=== PATIENT | female | born 1980 | race Caucasian/White ===

== ENCOUNTER 2017-12-04 21:15 | Emergency (ER) | payer SELFPAY ==
--- NOTE | 2017-12-04 21:17 | DI.RAD.S_ITS ---
PROCEDURE: XR CHEST 1V INDICATIONS: Chest pain TECHNIQUE: One view of the chest was acquired. COMPARISON: None. FINDINGS: Surgical changes and devices: None. Lungs and pleura: No pleural effusions or pneumothorax. Lungs are clear. Mediastinum: Mediastinal contours appear normal. Heart size is normal. Bones and chest wall: No suspicious bony lesions. Overlying soft tissues appear unremarkable. IMPRESSION: No acute process. Dictated by: Julio Gudino M.D. on 12/04/2017 at 21:58 Approved by: Julio Gudino M.D. on 12/04/2017 at 21:58
[2017-12-04 21:20] VITALS: BP 132/83; PULSE 94; RESP 18; TEMP 36.7; O2SAT 99; BMI 27.3
--- NOTE | 2017-12-04 21:37 | ED.CHESTPAIN ---
HPI - Chest Pain General Chief Complaint: Chest Pain Stated Complaint: BURNING SENSATION RT SIDE OF CHEST/PRESSURE Time Seen by Provider: 12/04/17 21:16 Source: patient Mode of arrival: ambulatory Limitations: no limitations History of Present Illness HPI narrative: 37-year-old female here for evaluation of epigastric and right-sided chest pressure and burning. She states it has been going on for the past day. She states that she did have an episode violent episode of vomiting after the patient states she also has a history of bulimia. She states that she purchase approximately once a week. Has never had anything like this before. Never had history of reflux disease. States that it did get worse with drinking fluids and eating earlier today. No family history of early cardiac disease Related Data Home Medications Medication Instructions Recorded Confirmed bismuth subsalicylate 1 tab PO 12/04/17 [Pepto-Bismol] ranitidine HCl [Zantac] 12/04/17 Previous Rx's Medication Instructions Recorded amoxicillin 500 mg PO TID #30 tab 04/27/16 sucralfate [Carafate] 5 ml PO QID #420 ml 12/04/17 Allergies Allergy/AdvReac Type Severity Reaction Status Date / Time No Known Drug Allergies Allergy Verified 12/04/17 21:42 Review of Systems Constitutional Denies chills, Denies fever(s), Denies lethargy and Denies weakness Cardiovascular Reports chest pain, Denies chest pain with activity, Denies diaphoresis, Denies rapid heart rate, Denies edema, Denies lightheadedness, Denies palpitations, Denies dyspnea and Denies slow heart rate Respiratory Denies cough, Denies pain on inspiration, Denies pain with cough, Denies dyspnea and Denies wheezing Gastrointestinal Gastrointestinal: Reports nausea and Reports vomiting Comments: Epigastric abdominal pain Genitourinary Denies hematuria, Denies flank pain, Denies urinary incontinence and Denies urinary urgency Musculoskeletal Denies back pain, Denies muscle weakness, Denies numbness and Denies tingling Integumentary/Breasts Denies pruritus, Denies erythema, Denies rash and Denies wounds Neurologic Denies numbness, Denies tingling and Denies weakness Endocrine Denies palpitations Hematologic/Lymphatic Denies easy bruising Allergic/Immunologic Denies wheezing [facility] Medical History Parotid tumor (Acute) Surgical History H/O hernia repair (Acute) Social History Smoking Status: Current every day smoker Exam Initial Vital Signs Initial Vital Signs: Vital Signs Temperature 98.1 F 12/04/17 21:20 Pulse Rate 94 H 12/04/17 21:20 Respiratory Rate 18 12/04/17 21:20 Blood Pressure 132/83 H 12/04/17 21:20 Pulse Oximetry 99 12/04/17 21:20 Chest Chest: normal inspection of the chest Resp Effort & Inspection: normal respiratory effort, able to speak in complete sentences, no respiratory distress and no use of accessory muscles Auscultation: clear to auscultation bilaterally, no rales, no rhonchi and no wheezes Cardio Rate: regular rate Rhythm: regular rhythm Heart Sounds: no click, no gallops, no murmurs and no rubs Pulses: normal peripheral pulses GI Inspection: non-distended Palpation: soft, no hepatosplenomegaly, No guarding, No pulsatile mass and No tender Auscultation: normal bowel sounds Skin General: no rashes or lesions noted, No jaundice and No petechiae Neuro General: alert, oriented x3, gait normal and no focal motor deficits Speech: speech normal Extrem General: full ROM, no clubbing, cyanosis or edema, no pedal edema and no calf tenderness Course Orders Ordered: ED Orders 12/04/17 21:17 XR chest 1V Stat EKG-12 Lead Stat 12/04/17 21:25 Complete Blood Count AUTO DIFF Stat Comprehensive Metabolic Panel Stat Lipase Stat Discontinued Medications Al Hydrox/Mg Hydrox/Simethicone 20 ml/ Lidocaine HCl 15 ml 0 ml PO NOW ONE Stop: 12/04/17 21:57 Last Admin: 12/04/17 22:03 Dose: 35 ml Vital Signs - 8 hr 12/04/17 21:20 12/04/17 22:19 Temperature 98.1 F Pulse Rate 94 H 70 Respiratory Rate 18 15 Blood Pressure 132/83 H Blood Pressure [Right Arm] 115/77 Pulse Oximetry 99 97 MDM - Chest Pain Lab Data Attestation: I reviewed the patient's lab results. Result diagrams: 12/04/17 21:25 12/04/17 21:25 Lab Results 12/04/17 12/04/17 Range/Units 21:25 21:25 WBC 10.4 (4.5-11.0) X10^3/uL RBC 4.47 (4.0-5.2) X10^6/uL Hgb 13.9 (12.0-16.0) g/dL Hct 40.9 (36-46) % MCV 91.5 (80-100) fL MCH 31.1 (26-34) PG MCHC 34.0 (30-36) % RDW 14.1 (11.6-14.8) % Plt Count 267 (150-400) X10^3/uL Neut % (Auto) 71.9 (50-75) % Lymph % (Auto) 17.5 L (25-40) % Heard % (Auto) 8.7 (3-14) % Eos % (Auto) 1.4 L (2-4) % Baso % (Auto) 0.5 (0-2) % Neut # (Auto) 7400 H (0990-3785) /uL Sodium 141 (137-145) mmol/L Potassium 4.0 (3.4-5.1) mmol/L Chloride 100 (98-107) mmol/L Carbon Dioxide 28 (22-32) mmol/L BUN 12 (7-17) mg/dL Creatinine 0.60 (0.52-1.04) mg/dL Estimated GFR > 60.0 (>60) mL/min BUN/Creatinine Ratio 20.0 (6-22) Glucose 94 (70-100) mg/dL Calcium 9.7 (8.4-10.2) mg/dL Total Bilirubin 0.5 (0.2-1.3) mg/dL AST 21 (14-36) IU/L ALT 25 (9-52) IU/L Alkaline Phosphatase 52 (38-126) U/L Total Protein 8.1 (6.3-8.2) g/dL Albumin 4.5 (3.5-5.0) g/dL Globulin 3.6 (1.7-4.1) g/dL Albumin/Globulin Ratio 1.3 (1.0-2.8) Lipase 63 (23-300) U/L Imaging Data Chest x-ray: Attestation: I personally reviewed and interpreted this imaging study as follows: My impression: No acute disease Normal size heart No pneumonia ECG Data Attestation: I personally reviewed and interpreted this ECG as follows: Prior ECG tracings: not available for review Interpretation: Sinus rhythm Ventricular rate is 77 Incomplete right bundle branch block Normal axis Normal QRS No ST T wave changes MDM Narrative Medical decision making narrative: Chest x-ray negative, EKG unremarkable, symptoms like consistent with ACS. Did get some relief with a GI cocktail here in the ER. I feel like her symptoms today are GI related. We did discuss her bulimia issues and the fact that she should talk with her primary doctor regarding this. We did discuss return precautions. Will send home with a prescription for Carafate. She expressed understanding and agreement with plan Discharge Plan Departure Patient Disposition: Home, Self-Care Clinical Impression: Reflux gastritis Instructions: DI for Gastroesophageal Reflux Disease (GERD) Activity Restrictions/Additional Instructions: Take all of your medications as instructed. Follow up with their primary doctor like we discussed return to the emergency department for any new or worsening symptoms Prescriptions: New sucralfate [Carafate] 100 mg/mL suspension 5 ml PO QID Qty: 420 RF: 0 No Action amoxicillin 500 MG tablet 500 mg PO TID Qty: 30 RF: 0 bismuth subsalicylate [Pepto-Bismol] 262 mg Tablet 1 tab PO RF: 0 ranitidine HCl [Zantac] 150 mg Tablet RF: 0 Stand Alone Forms: Against Medical Advice
[2017-12-04 21:49] LABS: Add Manual Diff / Slide Review NO; Basophils Percent Auto 0.5 % (0-2); Eosinophils Percent Auto 1.4 % (2-4); Hematocrit 40.9 % (36-46); Hemoglobin 13.9 g/dL (12.0-16.0); Lymphocytes Percent Auto 17.5 % (25-40); Mean Corpuscular Hemoglobin 31.1 PG (26-34); Mean Corpuscular Volume 91.5 fL (80-100); Monocytes Percent Auto 8.7 % (3-14); Neutrophils Absolute Auto 7400 /uL (3000-5900); Neutrophils Percent Auto 71.9 % (50-75); Platelet Count 267 X10^3/uL (150-400); Red Blood Cell Count 4.47 X10^6/uL (4.0-5.2); Red Cell Distribution Width 14.1 % (11.6-14.8); White Blood Cell Count 10.4 X10^3/uL (4.5-11.0)
[2017-12-04 21:54] LABS: Alanine Aminotransferase 25 IU/L (9-52); Albumin 4.5 g/dL (3.5-5.0); Albumin Globulin Ratio 1.3 (1.0-2.8); Alkaline Phosphatase 52 U/L (38-126); Aspartate Aminotransferase 21 IU/L (14-36); Bilirubin Total 0.5 mg/dL (0.2-1.3); Blood Urea Nitrogen 12 mg/dL (7-17); Calcium 9.7 mg/dL (8.4-10.2); Carbon Dioxide 28 mmol/L (22-32); Chloride 100 mmol/L (98-107); Estimated Glomerular Filt Rate > 60.0 mL/min (>60); Globulin 3.6 g/dL (1.7-4.1); Glucose 94 mg/dL (70-100); HEMOLYSIS 17 (0-50); Lipase 63 U/L (23-300); Sodium 141 mmol/L (137-145); Total Protein 8.1 g/dL (6.3-8.2)
[2017-12-04] MEDS: MAG HYDROX/ALUMINUM/SIMETH SUS 20 ML, LIDOCAINE VISCOUS 2% 15 ML PO (22:03)
[2017-12-04 22:19] VITALS: BP 115/77; PULSE 70; RESP 15; O2SAT 97
== END 2017-12-04 23:02 | disposition home or self-care (01) ==
PROVIDERS: Emergency Provider Emergency Medicine; Family Provider Family Medicine; PCP Family Medicine
DX: K29.60 Other gastritis without bleeding (principal)
CPT/HCPCS: 36591; 71045; 80053; 83690; 85025; 93005; 99282; 99285

== ENCOUNTER 2018-09-17 23:25 | Emergency (ER) | payer OTHER, SELFPAY ==
[2018-09-17 23:39] VITALS: BP 123/88; PULSE 102; RESP 20; TEMP 36.6; O2SAT 100
--- NOTE | 2018-09-18 02:12 | ED.UPPEXIN ---
HPI - Extremity Injury (Upper) General Chief Complaint: Extremity Injury, Upper Stated Complaint: left elbow cut with bone exposure from fall at wor Time Seen by Provider: 09/18/18 01:51 Source: patient Mode of arrival: ambulatory Limitations: no limitations History of Present Illness HPI narrative: Patient is a 38-year-old female who presents with left elbow injury and right ring finger injury. She was at work today when she cut her right ring finger. He said that was easily controlled with a band-aid. Then at around 10:00 p.m. this evening she was is caring something hands were full she tripped and fell landing on her elbows. Her left elbow has laceration in her right finger opened up again. No other injuries. She denies numbness or tingling in her fingers she is able to flex and extend her left elbow Related Data Home Medications Medication Instructions Recorded Confirmed bismuth subsalicylate 1 tab PO 12/04/17 [Pepto-Bismol] ranitidine HCl [Zantac] 12/04/17 Previous Rx's Medication Instructions Recorded amoxicillin 500 mg PO TID #30 tab 04/27/16 sucralfate [Carafate] 5 ml PO QID #420 ml 12/04/17 Allergies Allergy/AdvReac Type Severity Reaction Status Date / Time No Known Drug Allergies Allergy Verified 12/04/17 21:42 Review of Systems Review of Systems GENERAL: Denies chills, fatigue, malaise, fever, sweats, travel HEENT: Denies sinus pain, ear pain, sore throat, difficulty swallowing, neck pain RESPIRATORY: Denies dyspnea, cough, wheezing, hemoptysis, sputum. CARDIOVASCULAR: Denies chest pain, palpitations, orthopnea, edema GASTROINTESTINAL: Denies nausea, vomiting, abdominal pain, diarrhea, constipation, melena. : Denies dysuria, frequency, incontinence, hematuria, urinary retention, flank pain. MUSCULOSKELETAL: See HPI SKIN: See HPI NEUROLOGIC: Denies weakness, dizziness, headache, numbness, change in speech, confusion PSYCHIATRIC: No concerning psychosocial issues. 12 point review of systems is negative except for those stated above and HPI PFS Social History Smoking Status: Current every day smoker Exam Initial Vital Signs Initial Vital Signs: Vital Signs Temperature 98 F 09/17/18 23:39 Pulse Rate 102 H 09/17/18 23:39 Respiratory Rate 20 09/17/18 23:39 Blood Pressure 123/88 09/17/18 23:39 Pulse Oximetry 100 09/17/18 23:39 GENERAL: Well-appearing, well-nourished and in no acute distress. HEENT: Head atraumatic,EOMI, pupils reactive, neck is supple CARDIOVASCULAR: Regular rate and rhythm without murmurs, rubs or gallops. RESPIRATORY: Breath sounds equal bilaterally, no wheezes rales or rhonchi. ABDOMEN: Soft, nontender. Normoactive bowel sounds all 4 quadrants. No guarding or rebound. EXTREMITIES: Normal range of motion, no clubbing or edema. Neurovascularly intact. Left upper extremity laceration noted at although full flexion extension supination and pronation without pain. No shoulder pain or deformity NEUROLOGICAL: Alert and oriented x4.Normal gait and speech. Cranial nerves II through XII grossly intact. SKIN: 2 cm laceration noted left elbow. A flap-like laceration is right ring finger is on the lateral side. Full flexion and extension Procedures Laceration Repair Laceration 1: Site: upper extremity Side (If applicable): left Size (cm): 2 Description: linear Depth: simple, single layer Local Anesthetic: lidocaine 2% and with epi Amount of anesthesia used (mL): 2 Pre-repair: wound explored and irrigated extensively Skin layer closed with: nylon Size (cm): 4-0 Number of sutures: 2 Course Orders Ordered: Discontinued Medications Diphtheria/Tetanus/Acell Pertussis (Adacel) 0.5 ml IM .ONCE ONE Stop: 09/18/18 02:30 Last Admin: 09/18/18 02:31 Dose: 0.5 ml Vital Signs - 8 hr 09/17/18 23:39 09/18/18 02:36 Temperature 98 F Pulse Rate 102 H 80 Respiratory Rate 20 18 Blood Pressure 123/88 103/57 L Pulse Oximetry 100 98 Discharge Plan Departure Patient Disposition: Home Clinical Impression: Laceration of elbow, left Qualifiers: Encounter type: initial encounter Qualified Code(s): S51.012A - Laceration without foreign body of left elbow, initial encounter Laceration of right ring finger Qualifiers: Encounter type: initial encounter Damage to nail status: without damage Foreign body presence: without foreign body Qualified Code(s): S61.214A - Laceration without foreign body of right ring finger without damage to nail, initial encounter Discharge Date/Time: 09/18/18 02:37 Interventions: ED Discharge Assessment Last Done: 09/18/18 02:36 Instructions: DI for Laceration Repair Activity Restrictions/Additional Instructions: 1. Have your suture removed in 5-7 days, you may go to walk-in clinic, return to the ER or call your primary care physician. 2. No soaking in water including dishes, bathtubs, Lakes, swimming pools etc 3. Signs of infection include, but not limited to, increased redness, increased swelling, increased pain, fever and purulent drainage, if the symptoms should arise, you may need an antibiotic and you should have a reevaluation either by your primary care provider or by the emergency department. Prescriptions: No Action amoxicillin 500 MG tablet 500 mg PO TID Qty: 30 RF: 0 bismuth subsalicylate [Pepto-Bismol] 262 mg Tablet 1 tab PO RF: 0 ranitidine HCl [Zantac] 150 mg Tablet RF: 0 sucralfate [Carafate] 100 mg/mL suspension 5 ml PO QID Qty: 420 RF: 0 Referrals: [facility] [Provider Group]
--- NOTE | 2018-09-18 02:26 | PC.NURSE ---
After sutures per doctor,bacitracin and dressing applied.no drainage noted.
[2018-09-18] MEDS: TET,DIPH,PERTUSS(ACELL),VAC/PF 0.5 ML SYRINGE IM (02:31)
[2018-09-18 02:36] VITALS: BP 103/57; PULSE 80; RESP 18; O2SAT 98
== END 2018-09-18 02:37 | disposition home or self-care (01) ==
PROVIDERS: Emergency Provider Emergency Medicine
DX: S51.012A Laceration without foreign body of left elbow, initial encounter (principal); S61.214A Laceration without foreign body of right ring finger without damage to nail, initial encounter; W19.XXXA Unspecified fall, initial encounter; Y99.0 Civilian activity done for income or pay
CPT/HCPCS: 12001; 90471; 99282; 99283; 90715

== ENCOUNTER 2018-09-27 13:44 | Emergency (ER) | payer OTHER, SELFPAY ==
[2018-09-27 13:51] VITALS: BP 116/74; PULSE 68; RESP 16; TEMP 36.6; O2SAT 99
--- NOTE | 2018-09-27 14:21 | ED.WOUNDLAC ---
HPI - Wound/Laceration <[facility] - Last Filed: 09/27/18 17:49> General Chief Complaint: Wound/Laceration Stated Complaint: stitches removal Time Seen by Provider: 09/27/18 14:10 Source: patient Mode of arrival: ambulatory Limitations: no limitations History of Present Illness HPI narrative: Patient is a 38-year-old female current everyday smoker who presents with a chief complaint of needing a stitch removal. She had a laceration down to her elbow on 09/17 and had 2 sutures here. She states it is healing well, she has had no problems with mobility and has no concerns about possible infection. Related Data Home Medications Medication Instructions Recorded Confirmed bismuth subsalicylate 1 tab PO 12/04/17 [Pepto-Bismol] ranitidine HCl [Zantac] 12/04/17 Previous Rx's Medication Instructions Recorded amoxicillin 500 mg PO TID #30 tab 04/27/16 sucralfate [Carafate] 5 ml PO QID #420 ml 12/04/17 Allergies Allergy/AdvReac Type Severity Reaction Status Date / Time No Known Drug Allergies Allergy Verified 09/27/18 13:55 Review of Systems [facility] Last Filed: 09/27/18 17:49> Review of Systems GENERAL: Denies chills, fatigue, malaise, fever, sweats. HEENT: Denies sinus pain, ear pain, sore throat, difficulty swallowing, dizziness. RESPIRATORY: Denies dyspnea, cough, wheezing, hemoptysis, sputum. CARDIOVASCULAR: Denies chest pain, palpitations, orthopnea, edema, GASTROINTESTINAL: Denies nausea, vomiting, abdominal pain, diarrhea, constipation, melena. : Denies dysuria, frequency, incontinence, hematuria, urinary retention. MUSCULOSKELETAL: denies weakness, joint pain, or bony pain SKIN: See HPI NEUROLOGIC: Denies weakness, headache, numbness, change in speech, confusion, seizures, incoordination. PSYCHIATRIC: No concerning psychosocial issues. 12 point review of systems is negative except for those stated above PFSH <[facility] - Last Filed: 09/27/18 17:49> Social History Smoking Status: Current every day smoker Exam <RENÉE Craig - Last Filed: 09/27/18 17:49> Narrative Exam Narrative: GENERAL: This is a well-nourished, well-developed patient, no acute distress HEAD: Atraumatic. Normocephalic. No temporal or scalp tenderness. EYES: Pupils equal round and reactive. Extraocular motions intact. No scleral icterus. No injection or drainage. ENT: Nose without bleeding, purulent drainage or septal hematoma. Throat without erythema, tonsillar hypertrophy or exudate. Uvula midline. Airway patent. NECK: Trachea midline. No JVD or lymphadenopathy. Supple, nontender, no meningeal signs. CARDIOVASCULAR: Regular rate and rhythm RESPIRATORY: No cough. No increased respiratory effort. EXTREMITIES: Full range of motion left elbow BACK: Nontender without deformity or crepitance. No flank tenderness. NEURO: AOx3. SKIN: 2 cm laceration to left elbow. Two sutures in place. No surrounding erythema drainage. Initial Vital Signs Initial Vital Signs: Vital Signs Temperature 97.9 F 09/27/18 13:51 Pulse Rate 68 09/27/18 13:51 Respiratory Rate 16 09/27/18 13:51 Blood Pressure 116/74 09/27/18 13:51 Pulse Oximetry 99 09/27/18 13:51 <Nimisha Estrada DO - Last Filed: 09/29/18 10:15> Initial Vital Signs Initial Vital Signs: Vital Signs Temperature 97.9 F 09/27/18 13:51 Pulse Rate 68 09/27/18 13:51 Respiratory Rate 16 09/27/18 13:51 Blood Pressure 116/74 09/27/18 13:51 Pulse Oximetry 99 09/27/18 13:51 Course <RENÉE Craig - Last Filed: 09/27/18 17:49> Vital Signs - 8 hr 09/27/18 13:51 Temperature 97.9 F Pulse Rate 68 Respiratory Rate 16 Blood Pressure 116/74 Pulse Oximetry 99 <Nimisha Estrada DO - Last Filed: 09/29/18 10:15> Vital Signs - 8 hr 09/27/18 13:51 Temperature 97.9 F Pulse Rate 68 Respiratory Rate 16 Blood Pressure 116/74 Pulse Oximetry 99 MDM - Wound/Laceration <RENÉE Craig - Last Filed: 09/27/18 17:49> [facility] Narrative Medical decision making narrative: The patient is a 38-year-old female who presents with a chief complaint of needing suture removal. Her laceration is healed well and has no signs or symptoms of infection. Sutures removed by nursing without incident. Discharge Plan Departure Patient Disposition: Home Clinical Impression: Encounter for removal of sutures Discharge Date/Time: 09/27/18 14:48 Interventions: ED Discharge Assessment Last Done: 09/27/18 14:47 Instructions: DI for Suture Removal Activity Restrictions/Additional Instructions: Monitor your incision for signs and symptoms of infection including redness, pus and fever. Please be evaluated by her primary care provider or come back to the emergency department for any acute concerns. Prescriptions: No Action amoxicillin 500 MG tablet 500 mg PO TID Qty: 30 RF: 0 Pepto-Bismol 262 mg Tablet 1 tab PO RF: 0 ranitidine HCl [Zantac] 150 mg Tablet RF: 0 sucralfate [Carafate] 100 mg/mL suspension 5 ml PO QID Qty: 420 RF: 0 <Nimisha Estrada DO - Last Filed: 09/29/18 10:15> Cosign ED Attending Cossarahature Attestation: I was immediately available in the department for consultation. Documentation has been reviewed. I agree with assessment and plan.
--- NOTE | 2018-09-27 14:26 | ED_ITS ---
H[facility] - [facility]Laceration [facility] Last [facility]: 09/27/18 17:49> General Chief Complaint: Wound/Laceration Stated Complaint: stitches removal Time Seen by Provider: 09/27/18 14:10 Source: patient Mode of arrival: ambulatory Limitations: no limitations History of Present Illness HPI narrative: Patient is a 38-year-old female current everyday smoker who presents with a chief complaint of needing a stitch removal. She had a laceration down to her elbow on 09/17 and had 2 sutures here. She states it is healing well, she has had no problems with mobility and has no concerns about possible infection. Related Data Home Medications Medication Instructions Recorded Confirmed bismuth subsalicylate 1 tab PO 12/04/17 [Pepto-Bismol] ranitidine HCl [Zantac] 12/04/17 Previous Rx's Medication Instructions Recorded amoxicillin 500 mg PO TID #30 tab 04/27/16 sucralfate [Carafate] 5 ml PO QID #420 ml 12/04/17 Allergies Allergy/AdvReac Type Severity Reaction Status Date / Time No Known Drug Allergies Allergy Verified 09/27/18 13:55 Review of Systems <[facility] - Last Filed: 09/27/18 17:49> Review of Systems GENERAL: Denies chills, fatigue, malaise, fever, sweats. HEENT: Denies sinus pain, ear pain, sore throat, difficulty swallowing, dizziness. RESPIRATORY: Denies dyspnea, cough, wheezing, hemoptysis, sputum. CARDIOVASCULAR: Denies chest pain, palpitations, orthopnea, edema, GASTROINTESTINAL: Denies nausea, vomiting, abdominal pain, diarrhea, constipation, melena. : Denies dysuria, frequency, incontinence, hematuria, urinary retention. MUSCULOSKELETAL: denies weakness, joint pain, or bony pain SKIN: See HPI NEUROLOGIC: Denies weakness, headache, numbness, change in speech, confusion, seizures, incoordination. PSYCHIATRIC: No concerning psychosocial issues. 12 point review of systems is negative except for those stated above [facility] Last Filed: 09/27/18 17:49> Social History Smoking Status: Current every day smoker Exam <RENÉE Craig - Last Filed: 09/27/18 17:49> Narrative Exam Narrative: GENERAL: This is a well-nourished, well-developed patient, no acute distress HEAD: Atraumatic. Normocephalic. No temporal or scalp tenderness. EYES: Pupils equal round and reactive. Extraocular motions intact. No scleral icterus. No injection or drainage. ENT: Nose without bleeding, purulent drainage or septal hematoma. Throat without erythema, tonsillar hypertrophy or exudate. Uvula midline. Airway patent. NECK: Trachea midline. No JVD or lymphadenopathy. Supple, nontender, no meningeal signs. CARDIOVASCULAR: Regular rate and rhythm RESPIRATORY: No cough. No increased respiratory effort. EXTREMITIES: Full range of motion left elbow BACK: Nontender without deformity or crepitance. No flank tenderness. NEURO: AOx3. SKIN: 2 cm laceration to left elbow. Two sutures in place. No surrounding erythema drainage. Initial Vital Signs Initial Vital Signs: Vital Signs Temperature 97.9 F 09/27/18 13:51 Pulse Rate 68 09/27/18 13:51 Respiratory Rate 16 09/27/18 13:51 Blood Pressure 116/74 09/27/18 13:51 Pulse Oximetry 99 09/27/18 13:51 <Nimisha Estrada DO - Last Filed: 09/29/18 10:15> Initial Vital Signs Initial Vital Signs: Vital Signs Temperature 97.9 F 09/27/18 13:51 Pulse Rate 68 09/27/18 13:51 Respiratory Rate 16 09/27/18 13:51 Blood Pressure 116/74 09/27/18 13:51 Pulse Oximetry 99 09/27/18 13:51 Course <RENÉE Craig - Last Filed: 09/27/18 17:49> Vital Signs - 8 hr 09/27/18 13:51 Temperature 97.9 F Pulse Rate 68 Respiratory Rate 16 Blood Pressure 116/74 Pulse Oximetry 99 <Nimisha Estrada DO - Last Filed: 09/29/18 10:15> Vital Signs - 8 hr 09/27/18 13:51 Temperature 97.9 F Pulse Rate 68 Respiratory Rate 16 Blood Pressure 116/74 Pulse Oximetry 99 MDM - Wound/Laceration <RENÉE Craig - Last Filed: 09/27/18 17:49> [facility] Narrative Medical decision making narrative: The patient is a 38-year-old female who presents with a chief complaint of needing suture removal. Her laceration is healed well and has no signs or symptoms of infection. Sutures removed by nursing without incident. Discharge Plan Departure Patient Disposition: Home Clinical Impression: Encounter for removal of sutures Discharge Date/Time: 09/27/18 14:48 Interventions: ED Discharge Assessment Last Done: 09/27/18 14:47 Instructions: DI for Suture Removal Activity Restrictions/Additional Instructions: Monitor your incision for signs and symptoms of infection including redness, pus and fever. Please be evaluated by her primary care provider or come back to the emergency department for any acute concerns. Prescriptions: No Action amoxicillin 500 MG tablet 500 mg PO TID Qty: 30 RF: 0 Pepto-Bismol 262 mg Tablet 1 tab PO RF: 0 ranitidine HCl [Zantac] 150 mg Tablet RF: 0 sucralfate [Carafate] 100 mg/mL suspension 5 ml PO QID Qty: 420 RF: 0 <Nimisha Estrada DO - Last Filed: 09/29/18 10:15> Cosign ED Attending Cossarahature Attestation: I was immediately available in the department for consultation. Documentation has been reviewed. I agree with assessment and plan.
== END 2018-09-27 14:48 | disposition home or self-care (01) ==
PROVIDERS: Emergency Provider Nurse Practitioner Family
DX: Z48.02 Encounter for removal of sutures (principal)
CPT/HCPCS: 99281; 99283

== ENCOUNTER 2020-01-13 11:28 | Emergency (ER) | payer SELFPAY ==
[2020-01-13 11:34] VITALS: BP 130/86; PULSE 88; RESP 15; TEMP 37.2; O2SAT 96; BMI 29.5
--- NOTE | 2020-01-13 11:36 | DI.RAD.S_ITS ---
PROCEDURE: XR SHOULDER LT MIN 2V INDICATIONS: severe anterior shoulder pain TECHNIQUE: 3 views of the shoulder were acquired. COMPARISON: None. FINDINGS: Bones: No fractures or dislocations. No suspicious bony lesions. Visualized ribs appear intact. Soft tissues: No suspicious soft tissue calcifications. There is moderate calcific tendinitis of the rotator cuff. IMPRESSION: Moderate rotator cuff calcific tendinitis. Dictated by: Brielle Correa M.D. on 01/13/2020 at 12:13 Approved by: Brielle Correa M.D. on 01/13/2020 at 12:13
--- NOTE | 2020-01-13 11:38 | ED_ITS ---
HPI - Extremity Injury (Upper) General Chief Complaint: Extremity Problem,Nontraumatic Stated Complaint: left shoulder issue Time Seen by Provider: 01/13/20 11:28 Source: patient Mode of arrival: Ambulatory Limitations: no limitations History of Present Illness HPI narrative: 39-year-old female daily smoker with occasional use of alcohol and noncontributory medical history presents with worsening left anterior carlos ulder pain over the past few weeks. 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 She has already been placed in a sling and that seems to help some. She has significant pain with any range of motion but denies any numbness, tingling or weakness. Related Data Home Medications Medication Instructions Recorded Confirmed bismuth subsalicylate 1 tab PO 12/04/17 [Pepto-Bismol] ranitidine HCl [Zantac] 12/04/17 Previous Rx's Medication Instructions Recorded amoxicillin 500 mg PO TID #30 tab 04/27/16 sucralfate [Carafate] 5 ml PO QID #420 ml 12/04/17 ketorolac 10 mg PO Q6H PRN #14 tab 01/13/20 Allergies Allergy/AdvReac Type Severity Reaction Status Date / Time No Known Drug Allergies Allergy Verified 01/13/20 11:39 Review of Systems Constitutional Constitutional: Denies chills, Denies fatigue, Denies fever(s), Denies frequent falls, Denies lethargy and Denies weakness Eyes Eyes: Denies change in vision, Denies eye discharge, Denies irritation and Denies loss of vision ENT Ears, Nose, Mouth, and Throat: Denies change in voice, Denies dizziness, Denies neck pain, Denies sore throat and Denies throat swelling Cardiovascular Cardiovascular: Denies chest pain, Denies irregular heart rhythm, Denies lightheadedness, Denies palpitations, Denies dyspnea, Denies dyspnea on exertion and Denies orthopnea Respiratory Respiratory: Denies cough, Denies dyspnea, Denies dyspnea on exertion and Denies wheezing Gastrointestinal Gastrointestinal: Denies abdominal pain, Denies change in bowel habits, Denies diarrhea, Denies nausea and Denies vomiting Musculoskeletal Musculoskeletal: Reports arthralgias, Reports limited range of motion, Denies neck pain and Denies numbness Integumentary/Breasts Skin/Breast: Denies pruritus, Denies erythema, Denies rash and Denies wounds Neurologic Neurologic: Denies behavioral changes, Denies confusion, Denies dizziness, Denies frequent falls, Denies loss of vision, Denies numbness and Denies weakness Psychiatric Psychiatric: Denies anxiety, Denies behavioral changes, Denies confusion, Denies depression, Denies homicidal ideation and Denies suicidal ideation Endocrine Endocrine: Denies fatigue, Denies flushing and Denies palpitations Hematologic/Lymphatic Hematologic/Lymphatic: Denies easy bruising Allergic/Immunologic Allergic/Immunologic: Denies urticaria, Denies throat swelling and Denies wheezing Patient History Medical History Parotid tumor (Acute) Surgical History H/O hernia repair (Acute) Social History Smoking Status: Current every day smoker Smoking Status: Current every day smoker alcohol intake frequency: 0-2 drinks per day Substance Use Type: does not use Exam Narrative Exam Narrative: GEN: AOx3 and in mild distress EYES: Pupils are equal, round, and reactive to light and accommodation. Extraoccular muscles are intact bilaterally. There is no subconjunctival hemorrhage or exudate. CHEST: Lungs are clear to auscultation bilaterally and free of wheezes, rales, or rhonchi. Heart rate is regular rhythm, there are no murmurs, clicks, rubs, or gallops. There is no chest wall tenderness. ABD: Abdomen is soft and nontender. There is no guarding or rebound. Bowel sounds are normal in all 4 quadrants. There is no mass or organomegaly. EXT: Decreased range of motion secondary to pain, largely in the anterior shoulder at the insertion of biceps tendon. No numbness, tingling or measurable weakness. SKIN: Warm, pink, and dry. No erythema or rash Initial Vital Signs Initial Vital Signs: Vital Signs Temperature 99.0 F 01/13/20 11:34 Pulse Rate 88 01/13/20 11:34 Respiratory Rate 15 01/13/20 11:34 Blood Pressure 130/86 01/13/20 11:34 Pulse Oximetry 96 01/13/20 11:34 Course Course Course Narrative: discussion with senior science consultant orthopedist. no need for steroids. Recommends sling, NSAIDS, follow up Orders Ordered: ED Orders 01/13/20 11:36 XR shoulder LT min 2V Stat Discontinued Medications Ketorolac Tromethamine (Toradol) 60 mg IM NOW ONE Stop: 01/13/20 11:37 Last Admin: 01/13/20 12:07 Dose: 60 mg Documented by: SHAHID Vital Signs Vital signs: Vital Signs - 8 hr 01/13/20 11:34 01/13/20 12:34 Temperature 99.0 F Pulse Rate 88 78 Respiratory Rate 15 Blood Pressure 130/86 121/79 Pulse Oximetry 96 98 Discharge Plan Departure Patient Disposition: Home Clinical Impression: Acute shoulder pain Qualifiers: Laterality: left Qualified Code(s): M25.512 - Pain in left shoulder Discharge Date/Time: 01/13/20 12:36 Instructions: DI for Shoulder Tendinopathy Activity Restrictions/Additional Instructions: *You have been diagnosed with [left shoulder pain, likely tendinopathy or bursitis] *What to do: *Take medications as directed *Follow up with your primary care provider in 2-3 days, call for an appointment. Let them know you were seen in the Emergency Department and that we ask that you be seen in follow up *Return to ER if you should have any new, worsening or concerning symptoms Prescriptions: New ketorolac 10 mg tablet 10 mg PO Q6H PRN (Reason: pain) Qty: 14 RF: 0 No Action amoxicillin 500 MG tablet 500 mg PO TID Qty: 30 RF: 0 Pepto-Bismol 262 mg Tablet 1 tab PO RF: 0 ranitidine HCl [Zantac] 150 mg Tablet RF: 0 sucralfate [Carafate] 100 mg/mL suspension 5 ml PO QID Qty: 420 RF: 0 Referrals: Juan J Amezquita MD [Physician] -
[2020-01-13] MEDS: KETOROLAC 60 MG/2 ML VIAL IM (12:07)
[2020-01-13 12:34] VITALS: BP 121/79; PULSE 78; O2SAT 98
== END 2020-01-13 12:36 | disposition home or self-care (01) ==
PROVIDERS: Emergency Provider Emergency Medicine
DX: M25.512 Pain in left shoulder (principal)
CPT/HCPCS: 73030; 96372; 99283; J1885

== ENCOUNTER → 2020-09-20 11:29 | Outpatient (CLI) | payer OTHER, SELFPAY ==
[2020-09-20] MEDS: COVID-19 VACC #1, MRNA(MOD) 100 MCG/0.5 ML VIAL IM (11:43)
== END ==
PROVIDERS: Visit Provider Internal Medicine
DX: Z23 Encounter for immunization (principal)
CPT/HCPCS: 0011A; 91301

== ENCOUNTER → 2020-10-18 10:40 | Outpatient (CLI) | payer OTHER, SELFPAY ==
[2020-10-18] MEDS: COVID-19 VACC #2, MRNA(MOD) 100 MCG/0.5 ML VIAL IM (10:44)
== END ==
PROVIDERS: Visit Provider Internal Medicine
DX: Z23 Encounter for immunization (principal)
CPT/HCPCS: 0012A; 91301

== ENCOUNTER 2022-04-15 01:05 | Emergency (ER) | payer OTHER, SELFPAY ==
[2022-04-15 01:09] VITALS: BP 127/73; PULSE 93; RESP 20; TEMP 36.9; O2SAT 97; BMI 25.1
[2022-04-15] MEDS: diphenhydrAMINE 25 MG TABLET 50 MG PO (01:22)
[2022-04-15] MEDS: FAMOTIDINE 20 MG TABLET PO (01:22)
[2022-04-15] MEDS: predniSONE 20 MG TABLET 40 MG PO (01:23)
--- NOTE | 2022-04-15 02:05 | ED.ALLEREA ---
HPI - Allergic Reaction General Chief complaint: Allergic Reaction Stated complaint: ALLERGIC REACTION Time Seen by Provider: 04/15/22 02:04 Source: patient Mode of arrival: Ambulatory History of Present Illness HPI narrative: Patient is a 41-year-old female history of bursitis presents today with allergic reaction. She states that her doctor gave her etodolac, for shoulder pain she took 1 tablet 30 minutes later she broke out into hives and was itching. Has no tongue swelling lip swelling or difficulty breathing. No previous reaction to any medication. She says she has tolerated ketorolac and ibuprofen before. She received Benadryl Pepcid and prednisone is overall feeling better now Related Data Home Medications Medication Instructions Recorded Confirmed bismuth subsalicylate 262 mg 1 tab PO 12/04/17 tablet (Pepto-Bismol) ranitidine HCl 150 mg tablet 12/04/17 (Zantac) Previous Rx's Medication Instructions Recorded amoxicillin 500 mg tablet 500 mg PO TID #30 tabs 04/27/16 sucralfate 100 mg/mL oral 5 ml PO QID #420 mL 12/04/17 suspension (Carafate) ketorolac 10 mg tablet 10 mg PO Q6H PRN pain #14 tabs 01/13/20 Allergies Allergy/AdvReac Type Severity Reaction Status Date / Time No Known Drug Allergies Allergy Verified 04/15/22 01:08 Review of Systems Review of Systems Narrative: GENERAL: Denies chills,fever HEENT: Denies throat pain RESPIRATORY: Denies dyspnea, cough, wheezing CARDIOVASCULAR: Denies chest pain, palpitations GASTROINTESTINAL: Denies nausea, vomiting MUSCULOSKELETAL: Denies extremity pain, injury SKIN: See HPI NEUROLOGIC: Denies weakness, dizziness, headache, numbness 8 point review of systems is negative except for those stated above and HPI Patient History Medical History (Updated 04/15/22 @ 02:17 by Nimisha Estrada DO) Parotid tumor Surgical History H/O hernia repair Social History Smoking Status: Current every day smoker Smoking Status: Current every day smoker alcohol intake frequency: 0-2 drinks per day Substance Use Type: does not use Exam Initial Vital Signs Initial Vital Signs: Vital Signs Temperature 98.5 F 04/15/22 01:09 Pulse Rate 93 H 04/15/22 01:09 Respiratory Rate 20 04/15/22 01:09 Blood Pressure 127/73 04/15/22 01:09 Pulse Oximetry 97 04/15/22 01:09 Oxygen Delivery Method 04/15/22 01:09 GENERAL: Alert pleasant 5-year-old female and in no acute distress. HEENT: Head atraumatic,EOMI, pupils reactive, CARDIOVASCULAR: Regular rate and rhythm without murmurs, rubs or gallops. RESPIRATORY: Breath sounds equal bilaterally, no wheezes rales or rhonchi. ABDOMEN: Soft, nontender. Normoactive bowel sounds all 4 quadrants. No guarding or rebound. EXTREMITIES: Normal range of motion, no clubbing or edema. Neurovascularly intact NEUROLOGICAL: Alert and oriented x4. SKIN: Warm, dry, no laceration, no petechiae, no rashes or lesions. Course Orders Ordered: Discontinued Medications Diphenhydramine HCl (Diphenhydramine 25 Mg Tablet) 50 mg PO NOW ONE Stop: 04/15/22 01:19 Last Admin: 04/15/22 01:22 Dose: 50 mg Documented By: JAH Famotidine (Famotidine 20 Mg Tablet) 20 mg PO NOW ONE Stop: 04/15/22 01:20 Last Admin: 04/15/22 01:22 Dose: 20 mg Documented By: JAH Prednisone (Prednisone 20 Mg Tablet) 40 mg PO NOW ONE Stop: 04/15/22 01:20 Last Admin: 04/15/22 01:23 Dose: 40 mg Documented By: JAH Vital Signs Vital signs: Vital Signs - 8 hr 04/15/22 01:09 04/15/22 02:37 Temperature 98.5 F Pulse Rate 93 H 97 H Respiratory Rate 20 16 Blood Pressure 127/73 Pulse Oximetry 97 98 Oxygen Delivery Method Room Air Room Air MDM - Allergic Reaction MDM Narrative Medical decision making narrative: Patient likely had a drug reaction 30 minutes after taking medication she broke out into hives and pruritus. No sign of anaphylaxis no sign of airway obstruction symptoms have mostly resolved after Benadryl prednisone and Pepcid we discussed possibly needing more doses of prednisone, however hopefully not needed. At this time she will call her PCP if she needs to she is given instructions about Benadryl if she has more itching. Discharge Plan Departure Patient Disposition: Home Clinical Impression: Allergic reaction, Urticaria Instructions: DI for Adverse Drug Reaction -- Allergic Activity Restrictions/Additional Instructions: *You have been diagnosed with allergic reaction *What to do: At this time he likely had an allergic reaction. Her symptoms should continue to improve. However if not you may take Benadryl however if Benadryl does not work you may need prednisone *Continue to take medications as directed Benadryl 25-50 mg every 6 hours if needed for itching *Follow up with your primary care provider in 2-3 days or call [phone] *Return to ER if you should have increasing hives itching difficulty breathing tongue swelling lip swelling or any new, worsening or concerning symptoms Prescriptions: No Action amoxicillin 500 MG tablet 500 mg PO TID Qty: 30 0RF Pepto-Bismol 262 mg Tablet 1 tab PO ranitidine HCl [Zantac] 150 mg Tablet sucralfate [Carafate] 100 mg/mL suspension 5 ml PO QID Qty: 420 0RF Rx Instructions: swish in mouth and spit out; use after food and/or drink ketorolac 10 mg tablet 10 mg PO Q6H PRN (Reason: pain) Qty: 14 0RF Referrals: Raven Owens ARNP [[facility]] - Visit Report Forms: Patient Portal/API
[2022-04-15 02:37] VITALS: PULSE 97; RESP 16; O2SAT 98
== END 2022-04-15 02:38 | disposition home or self-care (01) ==
PROVIDERS: Emergency Provider Emergency Medicine
DX: L50.9 Urticaria, unspecified (principal); T78.40XA Allergy, unspecified, initial encounter
CPT/HCPCS: 99283; A9270

== ENCOUNTER → 2024-12-02 13:30 | Outpatient (CLI) | payer BC, SELFPAY ==
[2024-12-02 14:41] LABS: Add Manual Diff / Slide Review NO; Basophils Absolute Auto 0 /uL (0-100); Basophils Percent Auto 0.7 % (0-2); Eosinophils Absolute Auto 100 /uL (0-450); Eosinophils Percent Auto 1.2 % (2-4); Hematocrit 41.3 % (36-46); Hemoglobin 14.1 g/dL (12.0-16.0); Lymphocytes Absolute Auto 1300 /uL (1100-4500); Lymphocytes Percent Auto 22.3 % (25-40); Mean Corpuscular Hemoglobin 31.7 PG (26-34); Mean Corpuscular Volume 93.2 fL (80-100); Monocytes Absolute Auto 700 /uL (0-900); Monocytes Percent Auto 11.8 % (3-14); Neutrophils Absolute Auto 3800 /uL (1500-7000); Platelet Count 266 X10^3/uL (150-400); Red Blood Cell Count 4.43 X10^6/uL (4.0-5.2); White Blood Cell Count 5.9 X10^3/uL (4.5-11.0)
[2024-12-02 15:18] LABS: Alanine Aminotransferase 31 IU/L (<35); Albumin 4.8 g/dL (3.5-5.0); Albumin Globulin Ratio 1.8 (1.0-2.8); Alkaline Phosphatase 54 U/L (38-126); Aspartate Aminotransferase 37 IU/L (14-36); BUN Creatinine Ratio 28.3 (6-22); Blood Urea Nitrogen 17 mg/dL (7-17); Calcium 10.1 mg/dL (8.4-10.2); Carbon Dioxide 27 mmol/L (22-32); Chloride 100 mmol/L (98-107); Cholesterol 198 mg/dL (140-199); Estimated Glomerular Filt Rate > 60 mL/min (>60); Globulin 2.7 g/dL (1.7-4.1); Glucose 81 mg/dL (70-99); HEMOLYSIS 16 (0-50); Potassium 5.1 mmol/L (3.4-5.1); Sodium 135 mmol/L (137-145); Total Protein 7.5 g/dL (6.3-8.2); Triglycerides 55 mg/dL (35-150)
[2024-12-02 15:28] LABS: HDL Cholesterol 120 mg/dL (40-60); LDL Cholesterol Calculated 67 mg/dL (<100)
[2024-12-02 15:36] LABS: HCG Quantitative /Beta subunit < 2.39 mIU/mL; Prolactin 11.3 ng/mL (3.0-18.6)
[2024-12-02 15:47] LABS: TSH w/ Reflex to FT4 0.04 uIU/mL (0.47-4.68)
[2024-12-02 15:50] LABS: Follicle Stimulating Hormone 1.27 mIU/mL
[2024-12-02 16:40] LABS: Ferritin 120 ng/mL (6-137)
[2024-12-02 19:08] LABS: Free T4, Direct Thyroxine 1.07 ng/dL (0.78-2.19)
[2024-12-06 12:36] LABS: Estrogen 298 pg/mL (.)
[2024-12-12 04:38] LABS: % Free Progesterone 3.9 % (.); Free Progesterone 0.55 ng/dL (.); Progesterone, Serum 14 ng/dL (.)
== END ==
PROVIDERS: PCP Family Medicine; Referring Provider Family Medicine; Visit Provider Family Medicine
DX: N91.2 Amenorrhea, unspecified (principal); E28.319 Asymptomatic premature menopause; Z72.0 Tobacco use; Z30.41 Encounter for surveillance of contraceptive pills; D68.51 Activated protein C resistance; Z82.49 Family history of ischemic heart disease and other diseases of the circulatory system; Z13.220 Encounter for screening for lipoid disorders; Z76.89 Persons encountering health services in other specified circumstances; Z81.8 Family history of other mental and behavioral disorders
CPT/HCPCS: 80053; 80061; 82672; 82728; 83001; 84144; 84146; 84439; 84443; 84702; 84999; 85025

== ENCOUNTER → 2024-12-29 15:37 | Outpatient (CLI) | payer BC, SELFPAY ==
[2024-12-29 17:29] LABS: TSH w/ Reflex to FT4 1.49 uIU/mL (0.47-4.68)
== END ==
PROVIDERS: PCP Family Medicine; Referring Provider Family Medicine; Visit Provider Family Medicine
DX: R79.89 Other specified abnormal findings of blood chemistry (principal); D68.51 Activated protein C resistance; Z83.49 Family history of other endocrine, nutritional and metabolic diseases
CPT/HCPCS: 36415; 84443; 86376; 86800

== ENCOUNTER → 2025-01-18 14:55 | Outpatient (CLI) | payer BC, SELFPAY ==
--- NOTE | 2025-01-18 14:56 | DI.US.S_ITS ---
PROCEDURE: US THYROID INDICATIONS: Low TSH level TECHNIQUE: Real-time scanning was performed of the thyroid gland, with image documentation. COMPARISON: None. FINDINGS: Thyroid: Right lobe measures 4.8 x 1.2 x 1.5 cm. Left lobe measures 4.7 x 0.9 x 1.5 cm. Isthmus is 2 cm thick. Echotexture is heterogeneous. No discrete focal lesion seen. IMPRESSION: Heterogeneous echotexture of both thyroid lobes with no definite focal lesion seen. ACR TI-RADS definitions and recommendations: TI-RADS 1 (benign): 0 points. FNA not needed. TI-RADS 2 (not suspicious): 2 points. FNA not needed. TI-RADS 3: 3 points. * FNA if 2.5 cm or larger, follow up if 1.5 cm or larger (at 1, 3, and 5 years). TI-RADS 4: 4-6 points. * FNA if 1.5 cm or larger, follow up if 1 cm or larger (at 1, 2, 3, and 5 years). TI-RADS 5: 7 points or more. * FNA if 1 cm or larger, follow up if 0.5 cm or larger (every year for 5 years). Dictated by: Adair Moore M.D. on 01/18/2025 at 19:38 Approved by: Adair Moore M.D. on 01/18/2025 at 19:46
== END ==
PROVIDERS: PCP Family Medicine; Referring Provider Family Medicine; Visit Provider Family Medicine
DX: R79.89 Other specified abnormal findings of blood chemistry (principal)
CPT/HCPCS: 76536

== ENCOUNTER 2025-01-25 15:08 | Outpatient (RCR) | payer BC, SELFPAY ==
--- NOTE | 2025-01-26 14:47 | OT.OPPOC ---
Physical, Occupational & Speech Therapy At [facility] MillieIbeth Mitch [id number] Visit Care Team Role Provider Type Barbara Price DO Attending Provider Physician Family Provider Primary Care Provider Referring Provider Address: [address] [place] [address], [address], [address] Occupational Therapy Plan of Care OT Outpatient Adult Evaluation Start: 01/25/25 09:29 Freq: Status: Active Protocol: Document 01/25/25 15:15 (Rec: 01/25/25 09:36 [id number]) General Information - Adult Visit Information Visit Number 1 of 8 Plan of Care Dates 01/25/25-03/22/25 Insurance 6 visits no PA req'd;then all visits require faxed auth Information request 25 combined Session Time Visit Start Date 01/25/25 Visit Start Time 15:15 Visit Stop Time 16:00 Setting Treatment Setting Outpatient Care Visit Type Note Type Initial Evaluation Referral Referring Physician Dr. Barbara Price Reason for Referral R lateral epicondylitis Identification Identification Yes Confirmed Identification EMR Confirmed By Medical Information Medical History Bursitis of R shoulder, bilateral carpal tunnel Social Information Social History I can't carry anything, even my purse without it hurting which makes work very hard Patient Questionnaires Quick Dash- Upper Extremity Quick Dash UE Score 56.8 Quick Dash UE 40 to 59% Impaired (Score 40-59) Impairment Quick Dash- Work and Sports Modules Quick Dash W&S Score W: 62.5 Quick Dash Work and 60 to 79% Impaired (Score 60-79) Sport Impairment Goals Objective Measurements Objective Special Tests: Measurements Positive: Cozen?s, Lift-Off, O?Ben?s, Neer?s, Thomas -Bethel, Painful Arc (90??170?), Fuad?s (empty can), Cross-Body Adduction Negative: CaseRebeca Test AROM/MMT, WFL on BUE Treatment Treatment Patient was educated on the interconnected nature of her upper extremity symptoms, including how shoulder bursitis, lateral epicondylitis, and carpal tunnel syndrome can result from cumulative strain along the kinetic chain?particularly with repetitive overhead work, forceful gripping, and improper scapular mechanics. Education was provided regarding the inflammatory nature of shoulder bursitis and the importance of posture, scapular stability, and joint preservation strategies to offload irritated structures . Goals of care were discussed, including pain reduction, improved endurance for work-related tasks, and gradual return to functional independence in daily and occupational activities. Patient was educated on the importance of avoiding pain during exercise, as repetitive provocation can perpetuate inflammation and delay healing. A home exercise program (HEP) was introduced focusing on:Median nerve glides, Gentle scapular retraction drills, Wrist extensor stretches, Pain-free shoulder pendulums and AAROM, Continued nighttime use of wrist cock-up splints Recommendations for pain management included continued use of ice for lateral elbow pain, rest from provocative tasks (especially lifting trays or overhead activities), and positional modification during work to reduce cumulative strain. Short Term Goals Short Term Goals 1. Patient will demonstrate independence with HEP including nerve glides, scapular activation, and wrist extensor stretches with proper form and understanding of pain-free progression within 4 weeks. 2. Patient will tolerate light functional ADLs (e.g., carrying groceries, dressing) with shoulder or elbow pain of </= 2 or less within in 5 weeks. 3. Patient will demonstrate increased perceived independence with ADL and IADL task completion as demonstrated by QuickDASH score of </= 40 within 5 weeks. 4. Patient will report no waking due to night-time hand numbness with consistent splint use within 5 weeks. Prosthetist Goals Prosthetist Goals Within 8 weeks: 1. Patient will demonstrate improvement in QuickDASH scores </= 25 reflecting improved functional use of RUE during work tasks. 2. Per patient report, pt will complete repetitive work -related activities (e.g., lifting, tray carrying) with 0?3/10 pain and appropriate movement mechanics. 3. 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 4. Patient will independently implement joint protection and positional strategies to manage symptoms and prevent flare-ups. Assessment/Plan Assessment Patient Response Good Rehabilitation Good Potential Impairments ADLs,Body Mechanics,Coordination/Dexterity,Functional Identified Activities,Pain,Weakness,Recreational Activities, Meaningful Activities Treatment Assessment Patient presents with clinical signs and symptoms consistent with right lateral epicondylitis, right subacromial impingement syndrome likely stemming from unresolved bursitis, and suspected bilateral carpal tunnel syndrome. 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 Positive findings on multiple provocative tests support the presence of concurrent tendinopathy, impingement, and nerve involvement. Functional limitations are moderate, as indicated by a QuickDASH score of 56.8 and a work module score of 62.5. Patient demonstrates good insight into her condition and is motivated to manage symptoms conservatively; however, financial constraints may limit her access to consistent skilled therapy. Given the multifactorial presentation and chronicity of symptoms, she will benefit from skilled occupational therapy to address neuromuscular re-education, task modification, progressive home programming, and education on kinetic chain mechanics. Treatment should emphasize pain-free strategies to promote healing, improve endurance, and support her return to functional work activities with reduced risk of exacerbation. Home Exercise Median nerve glides, Gentle scapular retraction drills, Program Wrist extensor stretches, Pain-free shoulder pendulums and AAROM, Continued nighttime use of wrist cock-up splints Reviewed with Goals,Progress Being Made,Home Exercise Program Patient Patient Good Understanding Plan Length of treatment 8 (weeks) Plan of Care Start 01/25/25 Date Plan of Care End 03/22/25 Date Treatment Frequency Once a Week Treatment Duration 45 Minutes Treatment Emphasis dental assistant instructor strength assessment Next Session Therapeutic Contents Active Range of Motion,Adaptive Equipment Education, Client Education,Functional Activities,Home Exercise Program,Joint Protection,Manual Therapy,Orthosis,Self- Care,Stretching/Flexibility Activities,Therapeutic Activities,Therapeutic Exercises,Modalities Modalities As Needed Types of Modalities Ice Massage,Other Additional Types of MHP, paraffin Modalities Patient Instruction Home Exercise Program,Plan of Care,Questions/Concerns Patient Continue with Current Program Recommendations Electronically Signed by: Shana Prary OT 01/26/25 [id number] If you are in agreement with this Plan of Care, please return a signed and dated copy. I have reviewed this Plan of Care and certify that the skilled therapy services above are required to meet the patient?s needs. Physician Signature Date Printed Name and Credentials Clinical Instructor Signature Printed Name and Credentials
--- NOTE | 2025-02-03 13:41 | OT.OP.DC ---
Visit Care Team Role Provider Type Barbara Price DO Attending Provider Physician Family Provider Primary Care Provider Referring Provider Address: [address] [place] [address], [address], [place], [address] Email: [email or web address] Outpatient OT Outpatient Adult Evaluation Start: 01/25/25 09:29 Freq: Status: Active Protocol: Document 01/25/25 15:15 (Rec: 01/25/25 09:36 [id number]) General Information - Adult Visit Information Visit Number 1 of 8 Plan of Care Dates 01/25/25-03/22/25 Insurance 6 visits no PA req'd;then all visits require faxed auth Information request 25 combined Session Time Visit Start Date 01/25/25 Visit Start Time 15:15 Visit Stop Time 16:00 Setting Treatment Setting Outpatient Care Visit Type Note Type Initial Evaluation Referral Referring Physician Dr. Barbara Price Reason for Referral R lateral epicondylitis Identification Identification Yes Confirmed Identification EMR Confirmed By Medical Information Medical History Bursitis of R shoulder, bilateral carpal tunnel Social Information Social History I can't carry anything, even my purse without it hurting which makes work very hard Patient Questionnaires Quick Dash- Upper Extremity Quick Dash UE Score 56.8 Quick Dash UE 40 to 59% Impaired (Score 40-59) Impairment Quick Dash- Work and Sports Modules Quick Dash W&S Score W: 62.5 Quick Dash Work and 60 to 79% Impaired (Score 60-79) Sport Impairment Goals Objective Measurements Objective Special Tests: Measurements Positive: Cozen?s, Lift-Off, O?Ben?s, Neer?s, Thomas -Bethel, Painful Arc (90??170?), Fuad?s (empty can), Cross-Body Adduction Negative: CaseRebeca Test AROM/MMT, WFL on BUE Treatment Treatment Patient was educated on the interconnected nature of her upper extremity symptoms, including how shoulder bursitis, lateral epicondylitis, and carpal tunnel syndrome can result from cumulative strain along the kinetic chain?particularly with repetitive overhead work, forceful gripping, and improper scapular mechanics. Education was provided regarding the inflammatory nature of shoulder bursitis and the importance of posture, scapular stability, and joint preservation strategies to offload irritated structures . Goals of care were discussed, including pain reduction, improved endurance for work-related tasks, and gradual return to functional independence in daily and occupational activities. Patient was educated on the importance of avoiding pain during exercise, as repetitive provocation can perpetuate inflammation and delay healing. A home exercise program (HEP) was introduced focusing on:Median nerve glides, Gentle scapular retraction drills, Wrist extensor stretches, Pain-free shoulder pendulums and AAROM, Continued nighttime use of wrist cock-up splints Recommendations for pain management included continued use of ice for lateral elbow pain, rest from provocative tasks (especially lifting trays or overhead activities), and positional modification during work to reduce cumulative strain. Short Term Goals Short Term Goals 1. Patient will demonstrate independence with HEP including nerve glides, scapular activation, and wrist extensor stretches with proper form and understanding of pain-free progression within 4 weeks. 2. Patient will tolerate light functional ADLs (e.g., carrying groceries, dressing) with shoulder or elbow pain of </= 2 or less within in 5 weeks. 3. Patient will demonstrate increased perceived independence with ADL and IADL task completion as demonstrated by QuickDASH score of </= 40 within 5 weeks. 4. Patient will report no waking due to night-time hand numbness with consistent splint use within 5 weeks. Fdc Goals Dental Scheduler Goals Within 8 weeks: 1. Patient will demonstrate improvement in QuickDASH scores </= 25 reflecting improved functional use of RUE during work tasks. 2. Per patient report, pt will complete repetitive work -related activities (e.g., lifting, tray carrying) with 0?3/10 pain and appropriate movement mechanics. 3. Patient will demonstrate improved digital intern and wrist extensor endurance as evidenced by tolerance to 10?15 minutes of repetitive, low-load activity without symptom exacerbation. 4. Patient will independently implement joint protection and positional strategies to manage symptoms and prevent flare-ups. Assessment/Plan Assessment Patient Response Good Rehabilitation Good Potential Impairments ADLs,Body Mechanics,Coordination/Dexterity,Functional Identified Activities,Pain,Weakness,Recreational Activities, Meaningful Activities Treatment Assessment Patient presents with clinical signs and symptoms consistent with right lateral epicondylitis, right subacromial impingement syndrome likely stemming from unresolved bursitis, and suspected bilateral carpal tunnel syndrome. 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 Positive findings on multiple provocative tests support the presence of concurrent tendinopathy, impingement, and nerve involvement. Functional limitations are moderate, as indicated by a QuickDASH score of 56.8 and a work module score of 62.5. Patient demonstrates good insight into her condition and is motivated to manage symptoms conservatively; however, financial constraints may limit her access to consistent skilled therapy. Given the multifactorial presentation and chronicity of symptoms, she will benefit from skilled occupational therapy to address neuromuscular re-education, task modification, progressive home programming, and education on kinetic chain mechanics. Treatment should emphasize pain-free strategies to promote healing, improve endurance, and support her return to functional work activities with reduced risk of exacerbation. Home Exercise Median nerve glides, Gentle scapular retraction drills, Program Wrist extensor stretches, Pain-free shoulder pendulums and AAROM, Continued nighttime use of wrist cock-up splints Reviewed with Goals,Progress Being Made,Home Exercise Program Patient Patient Good Understanding Plan Length of treatment 8 (weeks) Plan of Care Start 01/25/25 Date Plan of Care End 03/22/25 Date Treatment Frequency Once a Week Treatment Duration 45 Minutes Treatment Emphasis digital intern strength assessment Next Session Therapeutic Contents Active Range of Motion,Adaptive Equipment Education, Client Education,Functional Activities,Home Exercise Program,Joint Protection,Manual Therapy,Orthosis,Self- Care,Stretching/Flexibility Activities,Therapeutic Activities,Therapeutic Exercises,Modalities Modalities As Needed Types of Modalities Ice Massage,Other Additional Types of MHP, paraffin Modalities Patient Instruction Home Exercise Program,Plan of Care,Questions/Concerns Patient Continue with Current Program Recommendations Functional Wrist/Hand Scan Hand Side Sensory Assessment Sensory Profile2 OT Outpatient Treatment Note - Adult Start: 01/25/25 09:29 Freq: Status: Active Protocol: Document 02/03/25 13:32 (Rec: 02/03/25 13:40 [id number]) OT Outpatient Adult Treatment Note Visit Information Plan of Care Dates 01/25/25-03/22/25 Insurance int 6 visits no PA req'd, max 25 PT/OT/ST, 6k copay, Information deductible/$379.64 met Setting Treatment Setting Outpatient Care Visit Type Note Type Discharge Summary General Information General Information Discharging pt at pt request due to insurance coverage. Pt stating she is unable to afford ongoing treatment due to high out of pocket costs and current financial burdens from prior health care costs, she has requested to discontinue OT treatment at this time and will resume when more equipped to manage the expense. Pt only seen for initial eval, no treatment provision, thus no progress to report since eval. Pt would benefit from continued skilled therapy intervention and can request a new referral once she is able to facilitate ongoing treatment. Will discharge at this time as requested by pt. - - Objective Short Term Goals 1. Patient will demonstrate independence with HEP including nerve glides, scapular activation, and wrist extensor stretches with proper form and understanding of pain-free progression within 4 weeks. [NOT MET ] 2. Patient will tolerate light functional ADLs (e.g., carrying groceries, dressing) with shoulder or elbow pain of </= 2 or less within in 5 weeks. [NOT MET ] 3. Patient will demonstrate increased perceived independence with ADL and IADL task completion as demonstrated by QuickDASH score of </= 40 within 5 weeks. [NOT MET 02/03/25] 4. Patient will report no waking due to night-time hand numbness with consistent splint use within 5 weeks. [ NOT MET 02/03/25] Fdc Goals Within 8 weeks: 1. Patient will demonstrate improvement in QuickDASH scores </= 25 reflecting improved functional use of RUE during work tasks. [NOT MET 02/03/25] 2. Per patient report, pt will complete repetitive work -related activities (e.g., lifting, tray carrying) with 0?3/10 pain and appropriate movement mechanics. [NOT MET 02/03/25] 3. Patient will demonstrate improved digital intern and wrist extensor endurance as evidenced by tolerance to 10?15 minutes of repetitive, low-load activity without symptom exacerbation. [NOT MET 02/03/25] 4. Patient will independently implement joint protection and positional strategies to manage symptoms and prevent flare-ups. [NOT MET 02/03/25] - - Assessment Patient Response to Good Treatment Rehabilitation Good Potential Progress Towards Appropriate for Discharge Goals Assessment of Unchanged Overall Progress Assessment of Discharge pt per pt request due to financial burden Improvement under current insurance plan. Pt would benefit from ongoing skilled therapy intervention and should request a new referral once she is able to facilitate ongoing care. Home Exercise Provided at eval Program Reviewed with Goals,Progress Being Made,Home Exercise Program Patient/Caregiver Patient/Caregiver Good Understanding - Plan Therapy Discharge to Home Exercise Program Recommendations Amount of Therapy No Further Therapy Recommended Frequency of No Further Therapy Treatment Treatment Emphasis digital intern strength assessment Next Session
== END 2025-02-06 13:58 | disposition home or self-care (01) ==
LOC: OT 15:08
PROVIDERS: Family Provider Family Medicine; PCP Family Medicine; Referring Provider Family Medicine; Visit Provider Family Medicine
DX: M77.11 Lateral epicondylitis, right elbow (principal)
CPT/HCPCS: 97165; 97530